=== PATIENT | male | born 1980 | race African-American/Black ===

== ENCOUNTER 2021-08-05 10:52 | Emergency (ER) | payer OTHER ==
[2021-08-05] MEDS ORDERED: IBUPROFEN800 MG PO (16:02)
== END 2021-08-05 16:23 | disposition home or self-care (01) ==
LOC: FER 10:52
DX: M79.671 Pain in right foot (principal)
CPT/HCPCS: 73630

== ENCOUNTER 2022-07-28 13:05 | Emergency (ER) | payer SELFPAY ==
[~2022-07-28 13:05] MED LIST: IBUPROFEN800 MG PO
[2022-07-28] MEDS ORDERED: NORCO 5-325 TA1 EACH PO (13:49)
[2022-07-28] MEDS ORDERED: AMOXICILLIN875 MG PO (13:51)
== END 2022-07-28 14:08 | disposition home or self-care (01) ==
LOC: FER 13:05
DX: K04.7 Periapical abscess without sinus (principal)
CPT/HCPCS: 99282